=== PATIENT | male | born 1970 | race Caucasian/White ===

== ENCOUNTER 2022-06-01 00:33 | Emergency (ER) | payer SELFPAY ==
[~2022-06-01] VITALS: Ht 182.9 cm; Wt 136.1 kg
--- NOTE | 2022-06-01 00:33 | NUR ---
Dr. Braga examining patient.
--- NOTE | 2022-06-01 00:33 | NUR ---
DIMITRI DAMICO, PREBOOK. TAKEN TO CHAIR.
[2022-06-01 00:36] VITALS: BP 172/120
[2022-06-01] MEDS ORDERED: cephALEXin 500 MG CAP PO ONE (00:40)
[2022-06-01] MEDS ORDERED: ACETAMINOPHEN EXTRA STRENGTH 500 MG TAB ONE (00:43)
[2022-06-01] MEDS ORDERED: ACETAMINOPHEN EXTRA STRENGTH 500 MG TAB PO ONE (00:50)
--- NOTE | 2022-06-01 00:57 | NUR ---
PT TAKEN TO RADIOLOGY
--- NOTE | 2022-06-01 01:02 | NUR ---
PT RETURN FROM RADIOLOGY
--- NOTE | 2022-06-01 01:16 | NUR ---
Dr. Braga examining patient.
--- NOTE | 2022-06-01 01:23 | NUR ---
repeat bp 180/129 [id number]. per veronika chavez give clonidine 0.1mg po for elevated bp.
[2022-06-01] MEDS ORDERED: CLONIDINE HYDROCHLORIDE 0.1 MG TAB PO ONE (01:25)
[2022-06-01] MEDS ORDERED: CEPH-588 PO (01:48)
[2022-06-01 02:00] VITALS: BP 170/90
--- NOTE | 2022-06-01 02:00 | NUR ---
PATIENT BIB [employer]. PATIENT EXAMINED BY DR. chavez. PATIENT MEDICALLY CLEARED AND RELEASED IN CUSTODY IN STABLE CONDITION. ORIGINAL PRE-BOOK FORM GIVEN TO OFFICER med.
== END 2022-06-01 02:00 ==
LOC: MED 00:33
DX: L03.115 Cellulitis of right lower limb (principal); I10 Essential (primary) hypertension; E11.9 Type 2 diabetes mellitus without complications; Z79.899 Other long term (current) drug therapy
CPT/HCPCS: 73630; 99284